=== PATIENT | male | born 2000 | race African-American/Black ===

== ENCOUNTER 2018-07-17 21:51 | Emergency (ER) | payer SELFPAY ==
[2018-07-17] MEDS ORDERED: Lidocaine 1% w/Epinephrine 1:100K 20 ML VIAL ONE (22:19)
== END 2018-07-17 23:24 | disposition home or self-care (01) ==
LOC: ERS 21:51
DX: L05.01 Pilonidal cyst with abscess (principal); J45.909 Unspecified asthma, uncomplicated
CPT/HCPCS: 10081; J2001

== ENCOUNTER 2018-07-19 17:18 | Emergency (ER) | payer SELFPAY | END 2018-07-19 17:50 | disposition home or self-care (01) | LOC: ERS 17:18 | DX: Z48.817 Encounter for surgical aftercare following surgery on the skin and subcutaneous tissue (principal); J45.909 Unspecified asthma, uncomplicated | CPT/HCPCS: 99282 ==

== ENCOUNTER 2018-08-09 11:26 | Emergency (ER) | payer SELFPAY ==
--- NOTE | 2018-08-09 11:53 | RAD ---
THREE VIEWS RIGHT ANKLE: DATE: 08/09/2018. HISTORY: Right ankle injury. FINDINGS: The ankle mortise is congruent. There is no evidence of a fracture, dislocation, or other osseous ab normality involving the right ankle. There is a suggestion of mild subcutaneous soft tissue swelling seen at the medial aspect of the hindfoot. IMPRESSION: Mild subcutaneous soft tissue swelling without evidence of an acute osseous abnormality. POS: [facility]
[2018-08-09] MEDS ORDERED: Ibuprofen 800 MG TAB ONE (13:09)
== END 2018-08-09 13:33 | disposition home or self-care (01) ==
LOC: ERS 11:26
DX: S93.401A Sprain of unspecified ligament of right ankle, initial encounter (principal); J45.909 Unspecified asthma, uncomplicated; X50.1XXA Overexertion from prolonged static or awkward postures, initial encounter

== ENCOUNTER 2019-10-21 19:41 | Emergency (ER) | payer SELFPAY | END 2019-10-21 20:41 | disposition home or self-care (01) | LOC: ERS 19:41 | DX: A63.0 Anogenital (venereal) warts (principal) | CPT/HCPCS: 99282 ==